=== PATIENT | male | born 1970 | race Two or more races ===

== ENCOUNTER 2021-03-22 15:31 | Inpatient (IN) | payer MEDICAID ==
[~2021-03-22] VITALS: Ht 162.6 cm; Wt 82.0 kg
[2021-03-22 20:52] LABS: Urine Bacteria NONE SEEN /hpf (None Seen); Urine Blood 1+ /uL (Negative); Urine Mucus FEW (None Seen); Urine WBC <1 /hpf (0 - 3)
[2021-03-22 21:21] LABS: Basophils # (auto) 0 10 ^3/uL (0-0.2); Basophils % (auto) 0.2 % (0.0-2.0); Eosinophils # (auto) 0 10 ^3/uL (0-0.8); Hematocrit 54.4 % (41.0-53.0); Hemoglobin 17.6 g/dL (13.5-17.5); Lymphocytes # (auto) 0.9 10 ^3/uL (0.4-5.4); Lymphocytes % (auto) 7.5 % (10.0-50.0); Mean Corpuscular Hemoglobin 29.7 pg (28.0-32.0); Mean Corpuscular Hgb Conc. 32.4 g/dL (32.0-36.0); Mean Corpuscular Volume 91.8 fL (80.0-100.0); Monocytes # (auto) 0.9 10 ^3/uL (0-1.3); Monocytes % (auto) 7.6 % (0.0-12.0); Neutrophils # (auto) 10.4 10 ^3/uL (1.6-8.6); Neutrophils % (auto) 84.7 % (37.0-80.0); Red Blood Cells 5.93 10^6/uL (4.5-5.90); Red Cell Distribution Width 14.2 % (11.8-14.3); White Blood Cell 12.3 10^3/uL (4.4-10.8)
[2021-03-22 21:38] LABS: Albumin 4.3 g/dL (3.4-5.0); Calcium 9.9 mg/dL (8.5-10.1); Potassium 4.8 mmol/L (3.5-5.1)
[2021-03-22 21:41] LABS: BUN/Creatinine Ratio 14.4; Total Protein 8.8 g/dL (6.4-8.2)
[2021-03-23] MEDS ORDERED: ONDANSETRON HCL 4 MG/2 ML VIAL IV PRN (04:30)
[2021-03-23] MEDS ORDERED: MORPHINE SULFATE 4 MG/ML SYR/VIAL IV PRN (04:30)
[2021-03-23] MEDS ORDERED: DEXTROSE (50%) 50ML SYRG IV PRN ×3 (04:30→22:00)
[2021-03-23] MEDS ORDERED: HYDROcodone-ACET 5/325MG TAB PO PRN (04:30)
[2021-03-23] MEDS ORDERED: DOCUSATE SOD 100 MG CAP PO PRN (04:30)
[2021-03-23] MEDS ORDERED: SODIUM CHLORIDE 0.9% 1,000 ML IV SCH (04:30)
[2021-03-23] MEDS ORDERED: ACETAMINOPHEN 325 MG TAB PO PRN (04:30)
[2021-03-23] MEDS ORDERED: cefTRIAXone 1GM/50ML D5W 50 ML IV ONE (04:45)
[2021-03-23] MEDS ORDERED: SODIUM CHLORIDE 0.9% 1,000 ML IV ONE (04:45)
[2021-03-23] MEDS ORDERED: MORPHINE SULFATE INJECTION 2 MG/ML SYRG IV PRN (05:30)
[2021-03-23] MEDS ORDERED: NITROGLYCERIN 0.4 MG SL TAB SL PRN (05:30)
[2021-03-23] MEDS ORDERED: InsuLIN REG 1unit/0.01ml Soln (100units/ml) SC SCH ×2 (08:00→22:00)
[2021-03-23] MEDS ORDERED: ACCU-CHEK COMFORT CURVE STRIP VI SCH ×2 (08:00→22:00)
[2021-03-23 08:07] LABS: Basophils # (auto) 0 10 ^3/uL (0-0.2); Basophils % (auto) 0.1 % (0.0-2.0); Eosinophils # (auto) 0 10 ^3/uL (0-0.8); Hematocrit 52.4 % (41.0-53.0); Hemoglobin 16.5 g/dL (13.5-17.5); Lymphocytes # (auto) 0.6 10 ^3/uL (0.4-5.4); Lymphocytes % (auto) 4.7 % (10.0-50.0); Mean Corpuscular Hemoglobin 29.2 pg (28.0-32.0); Mean Corpuscular Hgb Conc. 31.6 g/dL (32.0-36.0); Mean Corpuscular Volume 92.5 fL (80.0-100.0); Monocytes # (auto) 0.9 10 ^3/uL (0-1.3); Monocytes % (auto) 7.3 % (0.0-12.0); Neutrophils % (auto) 87.9 % (37.0-80.0); Nucleated Red Blood Cells % 0.6 %; Red Blood Cells 5.66 10^6/uL (4.5-5.90); Red Cell Distribution Width 14.5 % (11.8-14.3); White Blood Cell 12.5 10^3/uL (4.4-10.8)
[2021-03-23 08:25] LABS: Potassium 4.9 mmol/L (3.5-5.1)
[2021-03-23 08:32] LABS: BUN/Creatinine Ratio 15.2; Bilirubin, Total 0.6 mg/dL (0.2-1.0); Calcium 9.3 mg/dL (8.5-10.1); Total Protein 8.7 g/dL (6.4-8.2)
[2021-03-23] MEDS ORDERED: SODIUM BICARBONATE 8.4 % INJ 50ML VIAL IV ONE ×3 (10:05→11:30)
[2021-03-23] MEDS: InsuLIN R (HUMAN) 100 UNITS in SODIUM CHL 0.9% 99 ML IV SCH ×4 (10:08→21:16)
[2021-03-23] MEDS: FAMOTIDINE (10MG/ML) 2ML VL IV SCH (10:10)
[2021-03-23] MEDS: ZINC SULFATE 220mg CAP or TAB PO SCH (10:10)
[2021-03-23] MEDS: MULTIPLE VITAMIN TAB PO SCH (10:10)
[2021-03-23] MEDS: ASCORBIC ACID 500 MG TAB PO SCH ×2 (10:10→22:38)
[2021-03-23] MEDS: ACCU-CHEK COMFORT CURVE STRIP VI SCH ×8 (10:11→21:14)
[2021-03-23] MEDS ORDERED: SODIUM CHLORIDE 0.9% 2,000 ML IV ONE (10:15)
[2021-03-23] MEDS ORDERED: KETOROLAC TROMETH 30 MG/ML 1ML VIAL IV PRN (10:15)
[2021-03-23] MEDS ORDERED: MANNITOL FTV 25% 12.5 GM/50 ML 50 ML IV ONE (11:00)
[2021-03-23] MEDS ORDERED: SODIUM BICARBONATE 50ML VIAL 150 ML in SOD CHL 0.45% 1,000 ML IV ONE (11:30)
[2021-03-23 18:57] LABS: Albumin 2.9 g/dL (3.4-5.0); Calcium 8.6 mg/dL (8.5-10.1); Potassium 3.3 mmol/L (3.5-5.1)
[2021-03-23 19:37] LABS: BUN/Creatinine Ratio 19.4; Bilirubin, Total 0.5 mg/dL (0.2-1.0); Total Protein 6.4 g/dL (6.4-8.2)
[2021-03-23] MEDS ORDERED: INSULIN LANTUS (GLARGINE) 1 /0.01ml (100units/ml) SC ONE (22:00)
[2021-03-24] MEDS: ACCU-CHEK COMFORT CURVE STRIP VI SCH ×11 (04:24→17:51)
[2021-03-24] MEDS ORDERED: DEXTROSE (50%) 50ML SYRG IV PRN (04:30)
[2021-03-24] MEDS ORDERED: InsuLIN REG 1unit/0.01ml Soln (100units/ml) SC SCH (07:00)
[2021-03-24 07:11] LABS: Potassium 3.3 mmol/L (3.5-5.1)
[2021-03-24 07:18] LABS: Basophils # (auto) 0 10 ^3/uL (0-0.2); Basophils % (auto) 0.3 % (0.0-2.0); Eosinophils # (auto) 0 10 ^3/uL (0-0.8); Eosinophils % (auto) 0.1 % (0.0-7.0); Hematocrit 40.4 % (41.0-53.0); Hemoglobin 13.4 g/dL (13.5-17.5); Lymphocytes # (auto) 0.9 10 ^3/uL (0.4-5.4); Lymphocytes % (auto) 9.3 % (10.0-50.0); Mean Corpuscular Hemoglobin 29.6 pg (28.0-32.0); Mean Corpuscular Hgb Conc. 33.2 g/dL (32.0-36.0); Mean Corpuscular Volume 89.1 fL (80.0-100.0); Monocytes # (auto) 0.7 10 ^3/uL (0-1.3); Monocytes % (auto) 6.8 % (0.0-12.0); Neutrophils # (auto) 8.4 10 ^3/uL (1.6-8.6); Neutrophils % (auto) 83.5 % (37.0-80.0); Nucleated Red Blood Cells % 0.1 %; Red Blood Cells 4.53 10^6/uL (4.5-5.90); Red Cell Distribution Width 14.4 % (11.8-14.3); White Blood Cell 10.1 10^3/uL (4.4-10.8)
[2021-03-24 07:20] LABS: Albumin 2.7 g/dL (3.4-5.0); BUN/Creatinine Ratio 19.4; Bilirubin, Total 0.5 mg/dL (0.2-1.0); Calcium 8.8 mg/dL (8.5-10.1); Total Protein 5.6 g/dL (6.4-8.2)
[2021-03-24 07:23] LABS: INR 1.06 (0.9-1.15); Partial Thromboplastin Time 26.8 sec (23.6-33.0)
[2021-03-24] MEDS: cefTRIAXone 1GM/50ML D5W 50 ML IV SCH (09:45)
[2021-03-24] MEDS: MULTIPLE VITAMIN TAB PO SCH (10:00)
[2021-03-24] MEDS: ZINC SULFATE 220mg CAP or TAB PO SCH (10:00)
[2021-03-24] MEDS: FAMOTIDINE (10MG/ML) 2ML VL IV SCH (10:00)
[2021-03-24] MEDS: ASCORBIC ACID 500 MG TAB PO SCH ×2 (10:00→22:29)
[2021-03-24] MEDS ORDERED: MIDAZOLAM HCL 2MG/2ML 2ml VIAL (1mg/ml) ONE (10:32)
[2021-03-24] MEDS ORDERED: fentaNYL CITRATE 100 MCG/2 ML VL ONE (10:32)
[2021-03-24] MEDS ORDERED: IODIXANOL 320MG/ML 100ML BTL IV ONE (10:51)
[2021-03-24] MEDS ORDERED: LIDOCAINE 2%HCL (LOCAL ANESTH.) INJ 20ML MDV ONE (10:51)
[2021-03-24 11:35] VITALS: BP 137/88
[2021-03-24 11:50] VITALS: BP 136/78
[2021-03-24 12:05] VITALS: BP 143/79
[2021-03-24] MEDS: InsuLIN REG 1unit/0.01ml Soln (100units/ml) SC SCH ×2 (13:05→18:25)
[2021-03-24 23:00] VITALS: BP 138/75
[2021-03-25] MEDS: ACCU-CHEK COMFORT CURVE STRIP VI SCH ×3 (00:12→12:20)
[2021-03-25] MEDS: InsuLIN REG 1unit/0.01ml Soln (100units/ml) SC SCH ×3 (00:15→12:00)
[2021-03-25 05:00] VITALS: BP 142/90
[2021-03-25 06:22] LABS: Calcium 8.5 mg/dL (8.5-10.1)
[2021-03-25 06:26] LABS: Albumin 2.7 g/dL (3.4-5.0); BUN/Creatinine Ratio 14.8; Bilirubin, Total 0.6 mg/dL (0.2-1.0); Total Protein 5.9 g/dL (6.4-8.2)
[2021-03-25 06:41] LABS: Potassium 2.8 mmol/L (3.5-5.1)
[2021-03-25 09:00] VITALS: BP 147/84
[2021-03-25] MEDS ORDERED: TAM04C PO (11:00)
[2021-03-25] MEDS ORDERED: METF-372 PO (11:00)
[2021-03-25] MEDS ORDERED: LANCKIT12 XX (11:00)
[2021-03-25] MEDS ORDERED: POTA-220 PO (11:00)
[2021-03-25] MEDS ORDERED: BLOO1KIT60 XX (11:00)
[2021-03-25] MEDS: MULTIPLE VITAMIN TAB PO SCH (11:08)
[2021-03-25] MEDS: cefTRIAXone 1GM/50ML D5W 50 ML IV SCH (11:08)
[2021-03-25] MEDS: ASCORBIC ACID 500 MG TAB PO SCH (11:08)
[2021-03-25] MEDS: ZINC SULFATE 220mg CAP or TAB PO SCH (11:08)
[2021-03-25] MEDS ORDERED: TRAM50TA2 PO (11:08)
[2021-03-25] MEDS: FAMOTIDINE (10MG/ML) 2ML VL IV SCH (11:08)
[2021-03-25] MEDS ORDERED: POTASSIUM CHL 20 Meq TABLET PO SCH (22:00)
== END 2021-03-25 15:47 | disposition home or self-care (01) | DRG 465 ==
LOC: ER 15:31 → OVERFLOW 03-23 05:25 → WEST WING 03-24 23:00
PROVIDERS: ADMIT Nurse Practitioner Family; ATTEND Family Medicine
PROC: 0T9130Z Drainage of Left Kidney with Drainage Device, Percutaneous Approach (ICD-10-PCS; principal; 2021-03-24)
PROC: BT1DYZZ Fluoroscopy of Right Kidney, Ureter and Bladder using Other Contrast (ICD-10-PCS; 2021-03-24)
PROC: BT41ZZZ Ultrasonography of Right Kidney (ICD-10-PCS; 2021-03-24)
DX: N13.2 Hydronephrosis with renal and ureteral calculous obstruction (principal); R65.11 Systemic inflammatory response syndrome (SIRS) of non-infectious origin with acute organ dysfunction; G93.41 Metabolic encephalopathy; E11.10 Type 2 diabetes mellitus with ketoacidosis without coma; N17.9 Acute kidney failure, unspecified; E86.0 Dehydration; Q63.1 Lobulated, fused and horseshoe kidney; Z20.822 Contact with and (suspected) exposure to COVID-19
CPT/HCPCS: 36415; 36600; 50432; 74176; 74425; 76000; 76942; 80053; 81001; 82805; 82962; 83036; 83690; 85025; 85610; 85730; 87426; 96365; 96375; 99152; C1729; G0378; J0696; J1815; J1885; J2250; J2405; J3490; Q9967